=== PATIENT | male | born 1985 | race Caucasian/White ===

== ENCOUNTER 2020-04-09 08:27 | Outpatient (CLI) | payer SELFPAY ==
[2020-04-11 23:08] LABS: SARS-CoV-2 RNA Undetected (Undetected); SARS-CoV-2 Specimen Source Nasopharynx
== END 2020-04-09 08:47 ==
PROVIDERS: Visit Provider Internal Medicine
DX: Z11.59 Encounter for screening for other viral diseases (principal)
CPT/HCPCS: U0003

== ENCOUNTER 2020-09-21 13:44 | Emergency (ER) | payer SELFPAY ==
[2020-09-21 13:46] VITALS: BP 125/76; PULSE 76; RESP 16; TEMP 36.3; O2SAT 99
--- NOTE | 2020-09-21 14:05 | ED.GENADUL_ITS ---
Discharge Plan Disposition Patient Disposition: HOME Condition: Stable Discharge Details Clinical Impression: Laceration of scalp Primary Care Provider: Unknown,Unknown ED Provider: Homar Paredes Home Meds and New Rx's Prescriptions: Continued albuterol sulfate [ProAir HFA] 90 mcg/actuation Hfa Aerosol Inhaler 2 puff INHALATION PRNRF: 0 cholecalciferol (vitamin D3) [Vitamin D3] 25 mcg (1,000 unit) Tablet 1,000 unit PO DAILY RF: 0 Discharge Instructions Instructions: Care For Your Stitches (ED), Facial Laceration (ED) Additional Instructions: Keep the wound clean and dry. Apply antibiotic dressing daily. Please watch for new or worsening symptoms and return to the ER for any concerns. Sutures should be removed in approximately 5 days, please return to the ER. Discharge Data Discharge Date/Time-TO BE ENTERED AT DEPARTURE: 09/21/20 15:58 Medical Decision Making 35-year-old gentleman, no significant past medical history, was working outside, turned around and struck the right side of his head upon the corner of a chicken coop. He sustained a laceration and fell to the ground. Denies any injury from falling to the ground. He denies a global headache, LOC, neck pain, visual changes, nausea, vomiting, numbness, tingling, weakness. We will update his tetanus today as it appears as though it was greater than 5 years from his last update. Laceration will require repair. Given the majority of the laceration is on the face and not in the hairline I do believe that suturing is a better option when compared to stapling. No clear indication for advanced imaging of his head. This appears to be more of a laceration than a true head injury. Patient is awake, alert, neurologically intact. Patient is agreeable to this plan. Obtained consent from patient that PA student Alberot Layne will perform the procedure with direct supervision by me. The laceration was repaired without difficulty, patient tolerated well. Tetanus updated. Laceration was once again cleaned, antibiotic dressing applied. Patient has no additional questions or concerns and is comfortable discharge. We discussed signs and symptoms to watch for regarding infection and the importance of return to the ER sooner than 5 days for his suture removal. HPI General Mode of arrival: ambulatory . Date/Time Provider Initiated Documentation: 09/21/20 13:52 . Limitations to Documentation: no limitations . Information obtained by: patient . HPI Narrative: 35-year-old gentleman reports that he was working on electric fence, turned around quickly and caught the edge of a chicken coop to the right aspect of his forehead. He sustained a laceration, reports minimal discomfort. He states that he did fall to the ground after striking his head on a chicken coop but did not strike his head on the ground. He denies global headache, visual changes, neck pain, any symptoms prior to the injury, numbness, tingling, weakness, nausea or vomiting. Patient believes that he is not up-to-date on his tetanus status. Denies any other injury whatsoever. Related Data Home Medications Medication Instructions Recorded Confirmed albuterol sulfate [ProAir HFA] 2 puff INHALATION PRN 09/21/20 cholecalciferol (vitamin D3) 1,000 unit PO DAILY 09/21/20 09/21/20 [Vitamin D3] Allergies Allergy/AdvReac Type Severity Reaction Status Date / Time No Known Allergies Allergy Unverified 09/21/20 13:52 General Stated Complaint: Trauma TIMBO: 2 Review of Systems Constitutional Constitutional: Denies headache(s) and Denies weakness Eyes Eyes: Denies change in vision ENT Ears, Nose, Mouth, and Throat: Denies headache(s) and Denies neck pain Gastrointestinal Gastrointestinal: Denies nausea and Denies vomiting Musculoskeletal Musculoskeletal: Denies neck pain, Denies numbness and Denies tingling Neurologic Neurologic: Denies headache(s), Denies numbness, Denies tingling and Denies weakness [facility], [facility] Social History Smoking/Tobacco Use Status: Never Smoking risk assessment performed?: Yes Do you feel safe at home: No Do you feel safe in your relationship?: No Exam Const General: cooperative, healthy appearing, comfortable and no acute distress Orientation: alert, awake and oriented x3 HENMT Head: normocephalic and laceration Head images: 1. Slightly irregular 4.5 cm laceration. This laceration is well approximated. No active bleeding. Neuro, vascular, tendon intact. No foreign body. Ears: external ears normal, TM's normal bilaterally and EAC's normal Mouth: moist mucous membranes Eyes General: appearance normal, both eyes and all related structures Alignment and Position: alignment normal Periorbital: periorbital findings normal Eyelids: eyelids normal Conjunctivae: conjunctivae normal Sclera: sclerae normal Cornea: corneas normal Pupils: PERRL EOM: EOM intact bilaterally Direct ophthalmoscopy: normal light reflex Neck Neck: normal visual inspection, full ROM, no meningeal signs, trachea midline, supple and nontender Resp Effort & Inspection: normal respiratory effort and able to speak in complete sentences Skin General skin exam: no rashes or lesions noted Neuro General: patient alert, patient awake, patient oriented x3, moves all extremities and no focal motor deficits Cognition: normal cognition Speech: speech normal Gait: normal gait Sensory Exam: no sensory deficits noted Psych Appearance: grossly normal Mental Status: mental status grossly normal Course Vital Signs Vital signs: Vital Signs Temperature 36.3 C L 09/21/20 13:46 Pulse 76 09/21/20 13:46 Respiratory Rate 16 09/21/20 13:46 Blood Pressure 125/76 09/21/20 13:46 Pulse Oximetry 99 09/21/20 13:46 Temperature 36.3 C L 09/21/20 13:46 Temperature Source Skin 09/21/20 13:46 Pulse 76 09/21/20 13:46 Respiratory Rate 16 09/21/20 13:46 Respiratory Effort Non-Labored 09/21/20 13:46 Blood Pressure 125/76 09/21/20 13:46 Blood Pressure Position Sitting 09/21/20 13:46 Pulse Oximetry 99 09/21/20 13:46 Oxygen Delivery Method Room Air 09/21/20 13:46 Oxygen Flow Rate 0 09/21/20 13:46 Pain Level 6 09/21/20 13:46 Procedures Laceration Laceration 1: Site: scalp and face Side (If applicable): right Size (cm): 4.5 Description: irregular Depth: simple, single layer Local Anesthetic: Lidocaine 1% and with Epi Amount of anesthesia used (mL): 6 Pre-repair: wound explored, irrigated extensively and deep structures intact Skin layer closed with: nylon Size (cm): 4-0 Number of sutures: 9 Technique: simple, interrupted
== END 2020-09-21 15:58 | disposition home or self-care (01) ==
PROVIDERS: Emergency Provider Physician Assistant
DX: S01.81XA Laceration without foreign body of other part of head, initial encounter (principal); W20.8XXA Other cause of strike by thrown, projected or falling object, initial encounter
CPT/HCPCS: 12013; 90471